=== PATIENT | female | born 1970 | race Caucasian/White ===

== ENCOUNTER 2017-01-11 20:22 | Emergency (ER) | payer SELFPAY ==
[~2017-01-11] VITALS: Ht 165.1 cm; Wt 83.3 kg
[~2017-01-11 20:22] MED LIST: DOCU-30 PO; FERR325T20 PO
[2017-01-11 21:54] LABS: ASPARTATE AMINO TRANSFERASE 20 U/L (15-37); BLOOD UREA NITROGEN 12 mg/dL (7-18)
[2017-01-11 22:05] LABS: ANISOCYTOSIS 1+; HYPOCHROMIA 2+; MICROCYTOSIS 1+; POLYCHROMASIA 1+
[2017-01-11 22:07] LABS: IS PT STATUS REG ER OR PRE ER? YES; OVALOCYTES 1+; TARGET CELLS 1+
[2017-01-11 23:12] VITALS: BP 110/65
[2017-01-11 23:28] VITALS: BP 105/65
[2017-01-12 00:57] VITALS: BP 112/70
== END 2017-01-12 01:07 | disposition home or self-care (01) ==
LOC: ED 23:20
DX: D50.8 Other iron deficiency anemias (principal)
CPT/HCPCS: 36415; 36430; 71010; 80053; 83690; 84443; 84484; 85025; 85610; 86850; 86900; 86923; 93005; 99285; P9016

== ENCOUNTER 2019-04-22 17:33 | Emergency (ER) | payer OTHER ==
[~2019-04-22] VITALS: Ht 162.6 cm; Wt 74.7 kg
[2019-04-23 00:20] VITALS: BP 109/64
== END 2019-04-23 00:23 | disposition home or self-care (01) ==
LOC: ED 19:32
DX: D50.0 Iron deficiency anemia secondary to blood loss (chronic) (principal); Z98.51 Tubal ligation status
CPT/HCPCS: 36415; 36430; 80048; 85025; 86850; 86900; 86923; 99285; P9016